=== PATIENT | female | born 1990 | race Caucasian/White ===

== ENCOUNTER 2019-09-06 13:21 | Outpatient (CLI) | payer OTHER ==
[~2019-09-06] VITALS: Ht 160 cm; Wt 87.2 kg
== END 2019-09-06 14:05 | disposition home or self-care (01) ==
LOC: LDOP 13:21
PROVIDERS: ATTEND Obstetrics & Gynecology
DX: O26.893 Other specified pregnancy related conditions, third trimester (principal); K92.1 Melena; Z3A.33 33 weeks gestation of pregnancy
CPT/HCPCS: 59025; 99201; G0463

== ENCOUNTER 2019-09-23 10:56 | Outpatient (CLI) | payer OTHER ==
[~2019-09-23] VITALS: Ht 160 cm; Wt 87.7 kg
[2019-09-23 11:43] LABS: MICROSCOPIC INDICATED
[2019-09-23 12:34] VITALS: BP 119/74
[2019-09-23 13:08] LABS: CLUE CELLS NONE SEEN (NONE SEEN); WET PREP WBCS FEW (FEW)
[2019-09-23] MEDS ORDERED: PREN1TAB60 PO (13:58)
== END 2019-09-23 14:10 | disposition home or self-care (01) ==
LOC: LDOP 10:56
PROVIDERS: ATTEND Obstetrics & Gynecology
DX: O42.113 Preterm premature rupture of membranes, onset of labor more than 24 hours following rupture, third trimester (principal); Z3A.36 36 weeks gestation of pregnancy
CPT/HCPCS: 59025; 76815; 81001; 84112; 87086; 87210; 87808; 89060; 99211; G0463; Q0114

== ENCOUNTER 2020-02-26 12:10 | Emergency (ER) | payer SELFPAY ==
[~2020-02-26] VITALS: Ht 170.2 cm; Wt 70.0 kg
[~2020-02-26 12:10] MED LIST: DOCU-131 PO; IBUP-1223 PO; OXYC-302 PO; PREN1TAB60 PO
[2020-02-26] MEDS ORDERED: FENTANYL PF 100 MCG/2ML ONE ×2 (12:16→12:44)
--- NOTE | 2020-02-26 12:20 | NUR ---
MEDICATED PER EMAR FOR RIGHT SHOULDER PAIN AT 8/10 TO XRAY AT 1224
[2020-02-26] MEDS ORDERED: FENTANYL PF 100 MCG/2ML IV ONE ×2 (12:30→13:00)
[2020-02-26] MEDS ORDERED: PLEASE ENTER HEIGHT AND WEIGHT MC SCH (12:30)
[2020-02-26] MEDS ORDERED: PROPOFOL 10 MG/ML, 20ML ONE (12:45)
--- NOTE | 2020-02-26 13:47 | NUR ---
RIGHT SHOULDER DISLOCATION EASILLY REDUCED BY PROVIDED UTILIZING A TOTAL OF 100MG OF PROPOFOL. POST REDUCTION PATIENT WAS TRANSIENTLY HYPOXIC (80S)-TREATED WITH STERNAL RUB AND BREATH COACHING POST REDUCTION FILM SATISFACTORY TO PROVIDER. CMS INTACT IN PROVIDED SHOULDER IMMOBILIZER ARRANGEMENTS MADE FOR FAMILY TO COME ACTIVITY SPECIALIST IN ROUGHLY 30 MINUTES. REPORT TO JOSE MARTINEZ
[2020-02-26] MEDS ORDERED: PROPOFOL 10 MG/ML, 20ML IVPush ONE ×2 (14:00)
--- NOTE | 2020-02-26 14:04 | NUR ---
REPORT RECEIVED FROM FINESSE ALLEN. PT RESTING IN BED, NO DISTRESS, A&OX4. PT ON R/A, SAT >95%, PT OK FOR D/C. PT AWAITING RIDE. WILL D/C WHEN RIDE ARRIVED. CONT TO MONITOR.
--- NOTE | 2020-02-26 14:25 | NUR ---
PT UP TO RR, STEADY GAIT BUT USED W/C ASSIST. PT STILL AWAITING RIDE.
--- NOTE | 2020-02-26 15:22 | NUR ---
PT'S RIDE HERE, PT OK FOR D/C. PT WITH STEADY GAIT UPON D/C, VERBALIZED UNDERSTANDING OF D/C INSTRUCTIONS. HAS ALL OWN BELONGINGS UPON D/C.
[2020-02-26 15:24] VITALS: BP 116/71
== END 2020-02-26 15:26 | disposition home or self-care (01) ==
LOC: ED 13:47
DX: S43.004A Unspecified dislocation of right shoulder joint, initial encounter (principal); Z87.891 Personal history of nicotine dependence; X58.XXXA Exposure to other specified factors, initial encounter; Y93.89 Activity, other specified; Y92.009 Unspecified place in unspecified non-institutional (private) residence as the place of occurrence of the external cause; Y99.8 Other external cause status
CPT/HCPCS: 23650; 73030; 96374; 99285; J2704; J3010

== ENCOUNTER 2021-02-19 15:56 | Outpatient (CLI) | payer OTHER ==
[~2021-02-19] VITALS: Ht 160 cm; Wt 88.6 kg
[~2021-02-19 15:56] MED LIST changes: -OXYC-302 PO; +OXYC1TAB14 PO
== END 2021-02-19 17:12 | disposition home or self-care (01) ==
LOC: LDOP 15:56
PROVIDERS: ATTEND Obstetrics & Gynecology
DX: O12.03 Gestational edema, third trimester (principal); Z3A.31 31 weeks gestation of pregnancy
CPT/HCPCS: 59025

== ENCOUNTER 2021-04-09 22:32 | Observation (INO) | payer OTHER ==
[~2021-04-09] VITALS: Ht 160 cm; Wt 92.2 kg
[2021-04-09] MEDS ORDERED: LACTATED RINGERS 1,000 ML IVBOLUS ONE (23:00)
[2021-04-09 23:19] LABS: MICROSCOPIC INDICATED
[2021-04-09] MEDS: LACTATED RINGERS 1,000 ML IV SCH (23:22)
[2021-04-10] MEDS: LACTATED RINGERS 1,000 ML IV SCH (00:30)
[2021-04-16] MEDS ORDERED: OXYC-302 PO (06:29)
[2021-04-16] MEDS ORDERED: IBUP-1222 PO (10:20)
[2021-04-16] MEDS ORDERED: DOCU-131 PO (10:20)
== END 2021-04-10 05:21 | disposition home or self-care (01) ==
LOC: LDOP 22:32 → LDIP 04-10 01:59
PROVIDERS: ADMIT Obstetrics & Gynecology; ATTEND Obstetrics & Gynecology
DX: O62.9 Abnormality of forces of labor, unspecified (principal); O34.219 Maternal care for unspecified type scar from previous cesarean delivery; Z3A.38 38 weeks gestation of pregnancy; Z87.59 Personal history of other complications of pregnancy, childbirth and the puerperium; Z79.899 Other long term (current) drug therapy
CPT/HCPCS: 59025; 81001; 87086; 96360; 96361; G0378; J7120

== ENCOUNTER 2021-04-11 13:48 | Outpatient (CLI) | payer OTHER ==
[~2021-04-11] VITALS: Ht 160 cm; Wt 92.2 kg
[2021-04-11 14:11] VITALS: BP 115/58
[2021-04-11 14:18] LABS: MICROSCOPIC INDICATED
[2021-04-11] MEDS ORDERED: ACETAMINOPHEN 325 MG TABLET PO PRN (14:30)
== END 2021-04-11 16:03 | disposition home or self-care (01) ==
LOC: LDOP 13:48
PROVIDERS: ATTEND Obstetrics & Gynecology
DX: O36.8130 Decreased fetal movements, third trimester, not applicable or unspecified (principal); Z3A.38 38 weeks gestation of pregnancy
CPT/HCPCS: 59025; 76819; 81001; 87086

== ENCOUNTER 2021-04-13 15:41 | Outpatient (CLI) | payer OTHER ==
[2021-04-13] MEDS ORDERED: CEFAZOLIN 1,000 MG ONE (22:45)
[2021-04-13] MEDS ORDERED: EPINEPHRINE 1 MG/ML, 1ML ONE (22:45)
[2021-04-13] MEDS ORDERED: OXYTOCIN 10 UNITS/ML, 1ML ONE (22:45)
[2021-04-13] MEDS ORDERED: EPHEDRINE 50 MG/ML, 1ML ONE (22:45)
[2021-04-16] MEDS ORDERED: OXYC-302 PO (06:29)
[2021-04-16] MEDS ORDERED: DOCU-131 PO (10:20)
[2021-04-16] MEDS ORDERED: IBUP-1222 PO (10:20)
== END 2021-04-13 23:59 | disposition home or self-care (01) ==
LOC: STAR 15:41
PROVIDERS: ATTEND Obstetrics & Gynecology
DX: Z20.822 Contact with and (suspected) exposure to COVID-19 (principal)
CPT/HCPCS: U0003; U0005; J0171; J0690; J2590